=== PATIENT | female | born 1985 | race Caucasian/White ===

== ENCOUNTER → 2022-08-01 07:53 | Outpatient (BNVA) | payer BC, SELFPAY | PROVIDERS: Visit Provider Physician Assistant | DX: Z13.89 Encounter for screening for other disorder (principal) ==

== ENCOUNTER → 2022-08-14 08:02 | Outpatient (BNVA) | payer BC, SELFPAY | PROVIDERS: PCP Family Medicine; Visit Provider Surgery | DX: Z13.89 Encounter for screening for other disorder (principal) ==

== ENCOUNTER 2022-08-15 07:46 | Outpatient (REF) | payer BC, SELFPAY ==
--- NOTE | ~2022-08-15 | XR_ITS ---
EXAMINATION: XR CHEST CLINICAL INFORMATION: Obesity COMPARISON: None available. TECHNIQUE: 2 views of the chest were obtained. FINDINGS: No significant abnormality is noted involving the heart, lungs, mediastinum, bony thorax or soft tissues. XR/XR chest 2V IMPRESSION: Unremarkable examination.
--- NOTE | 2022-08-15 07:53 | ECG_ITS ---
Test Reason : e66.01 Blood Pressure : / mmHG Vent. Rate : 070 BPM Atrial Rate : 070 BPM P-R Int : 130 ms QRS Dur : 088 ms QT Int : 422 ms P-R-T Axes : 040 -01 035 degrees QTc Int : 455 ms Normal sinus rhythm Minimal voltage criteria for LVH, may be normal variant ( R in aVL ) Borderline ECG No previous ECGs available Referred By: João White Electronically Signed By:FORREST JUAREZ MD
[2022-08-15 08:00] LABS: MANUAL DIFF FLAG NO
[2022-08-15 08:05] LABS: Basophils Absolute Auto 0.1 X10*3/uL (0.0-0.2); Basophils Percent Auto 1.1 % (0-2); Eosinophils Absolute Auto 0.3 X10*3/uL (0.0-0.4); Eosinophils Percent Auto 3.2 % (0-4); Hematocrit 39.8 % (37.0-47.0); Hemoglobin 13.3 g/dl (12.0-16.0); Imm Gran Abs Auto 0.02 X10*3/uL (0.00-0.03); Imm Gran Pct Auto 0.2 % (0.0-0.4); Lymphocytes Absolute Auto 3.3 X10*3/uL (1.2-4.9); Lymphocytes Percent Auto 37.3 % (20-40); Mean Corpuscular HGB Conc 33.4 g/dl (31.0-35.0); Mean Corpuscular Hemoglobin 29.6 pg (27.0-33.0); Mean Corpuscular Volume 88.6 fL (80.0-98.0); Mean Platelet Volume 10.1 fL (9.4-12.3); Monocytes Absolute Auto 0.5 X10*3/uL (0.1-1.2); Monocytes Percent Auto 6.2 % (2-11); Neutrophils Absolute Auto 4.6 x10*3/uL (2.0-8.3); Platelet Count 375 X10*3/uL (160-400); Red Blood Count 4.49 X10*6/uL (4.20-5.50); Red Cell Distribution Width 12.8 % (11.0-16.0); White Blood Count 8.8 X10*3/uL (4.8-10.8)
[2022-08-15 08:18] LABS: Estimated Average Glucose 111 mg/dL; Hemoglobin A1c % 5.5 %
[2022-08-15 08:47] LABS: Alanine Aminotransferase 54 U/L (0-31); Albumin Level 4.1 g/dL (3.5-5.0); Alkaline Phosphatase 86 U/L (39-117); Anion Gap 10 (12-20); Aspartate Amino Transferase 32 U/L (5-31); Bilirubin Total 0.5 mg/dL (0.0-1.0); Blood Urea Nitrogen 12 mg/dL (9-16); C Reactive Protein 1.01 mg/dL (< or = 0.50); Calcium 9.4 mg/dL (8.4-10.2); Carbon Dioxide 29 mmol/L (22-29); Chloride 104 mmol/L (96-108); Cholesterol 225 mg/dL; Estimated Glomerular Filt Rate > 60; Glucose Random 103 mg/dL (60-115); HDL Cholesterol 33 mg/dL; Iron 111 mcg/dL (30-160); LDL Cholesterol Calculated 139 mg/dl; Percent Iron Saturation 29 % (15-50); Potassium 4.4 mmol/L (3.3-5.1); Sodium 139 mmol/L (135-145); Total Iron Binding Capacity 379 mcg/dL (228-428); Total Protein 7.1 g/dL (6.5-8.0); Triglycerides 269 mg/dL; Unsaturated Iron Binding 268 ug/dL
[2022-08-15 09:17] LABS: Ferritin 115 ng/mL (10-122); Folate 11.1 ng/mL (> or = 4.0); Insulin 13 uU/mL (2-29); TSH reflex Free T4 3.24 uIU/mL (0.32-4.0); Vitamin B12 540 pg/mL (200-900); Vitamin D 25-OH Total 23.3 ng/mL (>30)
[2022-08-16 13:48] LABS: Calcium (PTHI) 9.8 mg/dL (8.6-10.2); PTHI 49 pg/mL (16-77)
[2022-08-19 15:13] LABS: Zinc 79 mcg/dL (60-130)
[2022-08-20 13:34] LABS: Vitamin B1 <6 nmol/L (8-30)
[2022-08-23 00:04] LABS: Vitamin A 60 mcg/dL (38-98)
== END 2022-08-15 07:47 | disposition home or self-care (01) ==
LOC: HO.LAB 07:46
PROVIDERS: Visit Provider Surgery
DX: E66.01 Morbid (severe) obesity due to excess calories (principal); I10 Essential (primary) hypertension; K21.9 Gastro-esophageal reflux disease without esophagitis
CPT/HCPCS: 36415; 71046; 80053; 80061; 82306; 82607; 82728; 82746; 83036; 83525; 83540; 83970; 84425; 84443; 84590; 84630; 85025; 86140; 93005

== ENCOUNTER 2022-08-22 | Outpatient (REF) | payer BC, SELFPAY ==
[2022-08-25 11:26] LABS: H Pylori Breath Test Negative (Negative)
== END 2022-08-22 00:01 | disposition home or self-care (01) ==
LOC: HO.LNP
PROVIDERS: Visit Provider Surgery
DX: Z11.0 Encounter for screening for intestinal infectious diseases (principal)
CPT/HCPCS: 83013

== ENCOUNTER → 2022-08-22 09:00 | Outpatient (BNVA) | payer BC, SELFPAY | PROVIDERS: PCP Family Medicine; Visit Provider Counselor Mental Health | DX: Z13.89 Encounter for screening for other disorder (principal) ==

== ENCOUNTER → 2022-09-08 08:03 | Outpatient (BNVA) | payer BC, SELFPAY | PROVIDERS: PCP Family Medicine; Visit Provider Surgery ==

== ENCOUNTER → 2022-09-15 08:46 | Outpatient (BNVA) | payer BC, SELFPAY | PROVIDERS: PCP Family Medicine; Visit Provider Dietitian, Registered | DX: E66.01 Morbid (severe) obesity due to excess calories (principal); I10 Essential (primary) hypertension | CPT/HCPCS: 97802 ==

== ENCOUNTER → 2022-10-04 08:37 | Outpatient (BNVA) | payer BC, SELFPAY | PROVIDERS: PCP Family Medicine; Visit Provider Surgery | DX: E66.01 Morbid (severe) obesity due to excess calories (principal) ==

== ENCOUNTER 2022-10-16 07:46 | Outpatient (REF) | payer BC, SELFPAY ==
--- NOTE | ~2022-10-16 | FL_ITS ---
EXAMINATION: XR FLUOROSCOPY UPPER GI WITH AIR CLINICAL INFORMATION: Obesity COMPARISON: None available. TECHNIQUE: Upper GI was performed using thin and thick barium and effervescent granules. FINDINGS: Esophageal motility is normal. There is gastroesophageal reflux. No hernia is seen. The stomach and duodenum are normal-appearing. No fold thickening, mass, ulcer or stricture is seen. FLUOROSCOPY TIME: 0.3 minutes DOSE AREA PRODUCT: 4.5 jean per centimeter squared. Total dose 15 mgy. 21 saved fluoroscopic images. FL/FL upper GI w air IMPRESSION: Gastroesophageal reflux otherwise unremarkable exam.
--- NOTE | ~2022-10-16 | US_ITS ---
EXAMINATION: US COMPLETE ABDOMEN WITH LIVER ELASTOGRAPHY CLINICAL INFORMATION: Obesity COMPARISON: None available. TECHNIQUE: Real-time imaging of the abdominal viscera. Noninvasive ultrasound liver fibrosis assessment is performed using Micah ElastPQ point quantification shear wave elastography (2D-SWE) with a C5-2 MHz transducer. Multiple elastography samples are obtained. FINDINGS: PANCREAS: Normal. . ABDOMINAL AORTA: The proximal, middle, and distal aortic segments are normal in caliber. INFERIOR VENA CAVA: Visualized portions are normal. LIVER: Liver echotexture is increased. The liver is enlarged. The liver is normal in contour. No focal lesion or intrahepatic biliary duct dilatation. The right lobe measures 20 cm in length. The left lobe measures 11 cm in length. Portal flow is normal/hepatopedal Shear wave liver elastography median stiffness is 1.9 m/s (reference: normal median stiffness is 1.3 m/s or less). IQR/median stiffness to assess sampling precision is 0.09 (reference: good quality data set is IQR/median stiffness of 0.15 or less). GALLBLADDER: Normal. The gallbladder is physiologically distended without evidence of stones, sludge, polyps, wall thickening or pericholecystic fluid. COMMON BILE DUCT: Normal in caliber measuring 0.4 cm in diameter. RIGHT KIDNEY: Normal. No hydronephrosis. No renal calculi or focal parenchymal lesions. The kidney measures 13.7 cm in maximum dimension. LEFT KIDNEY: Normal. No hydronephrosis. No renal calculi or focal parenchymal lesions. The kidney measures 12.2 cm in maximum dimension. SPLEEN: Normal. The spleen measures 11 cm in maximum dimension. FREE FLUID: None. US/US abdomen comp w elastography IMPRESSION: 1. Impression: Enlarged echogenic liver probably representing fatty infiltration. 2. Liver elastography: Adequate liver sampling. Increased liver stiffness suggestive of compensated advanced chronic liver disease but need further test for confirmation. REFERENCE: Society of Radiologists in Ultrasound Liver Stiffness Thresholds (2020): LIVER STIFFNESS THRESHOLDS: *Liver Stiffness equal or less than 1.3 m/s: High probability of being normal. *Liver Stiffness less than 1.7 m/s: In the absence of other known clinical signs, rules out compensated advanced chronic liver disease. *Liver Stiffness 1.7-2.1 m/s: Suggestive of compensated advanced chronic liver disease but need further test for confirmation. *Liver Stiffness over 2.1 m/s: Rules in compensated advanced chronic liver disease. *Liver Stiffness over 2.4 m/s: Suggestive of clinically significant portal hypertension. QUALITY OF DATA SET: *IQR/Median value equal or less than 0.15 implies a quality data set. *IQR/Median value over 0.15 implies a poor quality data set. SIGNIFICANT CHANGE FROM PRIOR EXAM: Significant change if liver stiffness measurement is 10% or greater from prior exam. OTHER CONSIDERATIONS: The stage of liver fibrosis may be overestimated in the setting of acute hepatitis, liver inflammation, elevated liver function tests, hepatic vascular congestion, obstructive cholestasis, non-fasting state, and infiltrative diseases such as amyloidosis and lymphoma. In some patients with NAFLD, the liver stiffness thresholds for compensated advanced chronic liver disease may be lower. In causes other than viral hepatitis and NAFLD, liver stiffness thresholds are not well established.
== END 2022-10-16 07:47 | disposition home or self-care (01) ==
LOC: HO.US 07:46
PROVIDERS: PCP Family Medicine; Visit Provider Surgery
DX: E66.01 Morbid (severe) obesity due to excess calories (principal); K21.9 Gastro-esophageal reflux disease without esophagitis; I10 Essential (primary) hypertension
CPT/HCPCS: 74246; 76705; 76981

== ENCOUNTER → 2022-10-17 08:02 | Outpatient (BNVA) | payer BC, SELFPAY | PROVIDERS: PCP Family Medicine; Visit Provider Surgery ==

== ENCOUNTER 2022-10-18 08:08 | Outpatient (REF) | payer BC, SELFPAY | END 2022-10-18 08:09 | disposition home or self-care (01) | LOC: HO.LAB 08:08 | PROVIDERS: Visit Provider Surgery | DX: Z13.89 Encounter for screening for other disorder (principal) | CPT/HCPCS: 36415; 80053; 80061; 83036; 83525; 84443; 85025; 85610; 85730; 86140; 86850; 86900; 86901 ==

== ENCOUNTER → 2022-10-20 12:46 | Outpatient (BNVA) | payer BC, SELFPAY | PROVIDERS: PCP Family Medicine; Visit Provider Surgery ==

== ENCOUNTER 2022-10-25 08:10 | Inpatient (IN) | payer BC, SELFPAY ==
[2022-10-18 08:26] LABS: MANUAL DIFF FLAG NO
[2022-10-18 09:30] LABS: Basophils Absolute Auto 0.1 X10*3/uL (0.0-0.2); Basophils Percent Auto 1.3 % (0-2); Eosinophils Absolute Auto 0.2 X10*3/uL (0.0-0.4); Eosinophils Percent Auto 2.6 % (0-4); Hematocrit 38.8 % (37.0-47.0); Hemoglobin 12.9 g/dl (12.0-16.0); Imm Gran Abs Auto 0.01 X10*3/uL (0.00-0.03); Imm Gran Pct Auto 0.1 % (0.0-0.4); Lymphocytes Absolute Auto 3.1 X10*3/uL (1.2-4.9); Lymphocytes Percent Auto 42.4 % (20-40); Mean Corpuscular HGB Conc 33.2 g/dl (31.0-35.0); Mean Corpuscular Hemoglobin 29.6 pg (27.0-33.0); Mean Platelet Volume 10.4 fL (9.4-12.3); Monocytes Absolute Auto 0.4 X10*3/uL (0.1-1.2); Monocytes Percent Auto 5.8 % (2-11); Neutrophils Absolute Auto 3.4 x10*3/uL (2.0-8.3); Neutrophils Percent Auto 47.8 % (45-73); Platelet Count 366 X10*3/uL (160-400); Red Blood Count 4.36 X10*6/uL (4.20-5.50); Red Cell Distribution Width 12.5 % (11.0-16.0); White Blood Count 7.2 X10*3/uL (4.8-10.8)
[2022-10-18 09:40] LABS: Estimated Average Glucose 97 mg/dL
[2022-10-18 09:43] LABS: Prothrombin Time 11.4 SEC (10.0-13.1)
[2022-10-18 09:46] LABS: Partial Thromboplastin Time 39.9 SEC (26.0-36.4)
[2022-10-18 10:13] LABS: Alanine Aminotransferase 29 U/L (0-31); Albumin Level 4.1 g/dL (3.5-5.0); Alkaline Phosphatase 72 U/L (39-117); Anion Gap 11 (12-20); Aspartate Amino Transferase 22 U/L (5-31); Bilirubin Total 0.4 mg/dL (0.0-1.0); Blood Urea Nitrogen 13 mg/dL (9-16); C Reactive Protein 0.61 mg/dL (< or = 0.50); Calcium 9.1 mg/dL (8.4-10.2); Carbon Dioxide 26 mmol/L (22-29); Chloride 108 mmol/L (96-108); Cholesterol 200 mg/dL; Estimated Glomerular Filt Rate > 60; Glucose Random 96 mg/dL (60-115); HDL Cholesterol 29 mg/dL; LDL Cholesterol Calculated 121 mg/dl; Potassium 3.9 mmol/L (3.3-5.1); Sodium 141 mmol/L (135-145); Total Protein 7.5 g/dL (6.5-8.0); Triglycerides 252 mg/dL
[2022-10-18 10:31] LABS: Insulin 14 uU/mL (2-29); TSH reflex Free T4 2.55 uIU/mL (0.32-4.0)
[2022-10-19 09:06] VITALS: BMI 43.4
--- NOTE | 2022-10-21 14:55 | P.HPSUR_ITS ---
Pre-Procedural Eval Section A Date of Service: 10/21/22 The patient is an INPATIENT: Yes The History & Physical has been completed within 30 days and I have reviewed it.: Yes Section B Chief Complaint: Morbid (severe) obesity due to excess calories Relevant Family History (Specify if Yes): No Relevant Social History: None Present Medications: None Medical History: No relevant PMH History of Previous Operations: No relevant previous surgery Allergies: Allergies Allergy/AdvReac Type Severity Reaction Status Date / Time No Known Allergies Allergy Verified 10/17/22 09:17 Review of Systems Sugical H&P ROS: Negative: Constitution, Cardiovascular, Respiratory, Neurological, Psychiatric, Hem-Onc, Allergic/Immunologic, Gastrointestinal, Genitourinary, Musculoskeletal, Integumentary, Endocrine and Eyes/Ears/No se/Throat Exam Surgical H&P Exam: Normal: HEENT, Normal: Heart, Normal: Lungs, Normal: Extremities, Normal: Abdomen, Normal: Skin and Normal: Neurological Plan Diagnosis/Plan: Unchanged I have reviewed the history and physical and performed a pertinent physical examination on my patient. No changes have occurred unless specified. Time Spent With Patient Time: Total time managing care of this patient today ____ minutes.
--- NOTE | 2022-10-24 09:53 | HO.ANESPROP2 ---
Documented by User: Bernie Cheek NP 10/24/22 09:54 HPI - Anesthesia Eval Consult details Narrative: 37yo F for Gastrectomy Sleeve EGD, poss diaphragmatic hernia, poss ventral,poss open PMFSH Active Problems Active Problems: All Active Problems (Updated 08/22/22 @ 18:22 by João White MD) Binge-eating disorder, in partial remission, mild (Acute) Adjustment disorder, unspecified (Acute) Vitamin D deficiency (Acute) Vitamin B1 deficiency (Acute) DJD (degenerative joint disease) (Acute) GERD (gastroesophageal reflux disease) (Acute) Hypertension (Acute) Morbid obesity (Acute) Past Medical History Medical History (Updated 10/25/22 @ 12:28 by João White MD) DJD (degenerative joint disease) GERD (gastroesophageal reflux disease) Hypertension Morbid obesity Family History Family History (Updated 08/01/22 @ 08:34 by Alicia Luciano CMA) Father HTN (hypertension) Diabetes Paternal Grandfather Skin cancer Paternal Grandmother Skin cancer Surgical History Surgical History (Updated 10/25/22 @ 12:18 by Lulú Velazco PA-C) History of left knee surgery Social History Social History (Updated 08/01/22 @ 08:35 by Alicia Luciano CMA) Household Members: None Housing: House Are you a primary resident care aid to a significant other at home: No Do you presently have visiting nurse or other home services: No Alcohol intake: current Alcohol intake frequency: holidays/special occasions only Alcohol type: hard liquor Patient Tobacco Use Status: Never used Tobacco Use of substances other than those prescribed or required for medical reasons: No Substance Use Type Other:: occasional edibles-has not used since in bariatric program Substance Use Frequency: Occasionally Currently Displaying Signs/Symptoms of Drug Intoxication Withdrawal: No Have you been hit, kicked, punched, or otherwise hurt by someone within the past year? If so, by whom?: No Do you feel safe in your current relationship?: Yes Is there a partner from a previous relationship who is making you feel unsafe now?: No Are you made to feel afraid or neglected: No Are you DNR?: No Advance Directives Information Provided: Yes (brochure mailed) Advance Directives on File: No Do you have thoughts of harming others: None Do you have a plan to hurt others: No Plan Recently lost weight without trying: No Eating poorly because of decreased appetite: No Nutrition Risks: No Nutritional Risk Patient : No FDLMP: 10/16/22 : No Poor oral hygiene: No Current occupational status: employed Current occupation: title i assistant food truck also transport Meds Allergies Allergy/AdvReac Type Severity Reaction Status Date / Time No Known Allergies Allergy Verified 10/25/22 09:06 Home Medications Medication Instructions Recorded Confirmed Last Taken Type amlodipine 10 mg tablet 5 mg PO BEDTIME 08/01/22 10/19/22 10/24/22 History Exam Exam Date and Time: October 24, 2022 0953 Height,Weight and Vital Signs: Height 5 ft 5 in Weight 118.388 kg Pertinent Lab Results Pertinent Lab Results: Laboratory Tests 10/18/22 10/18/22 10/18/22 08:22 08:23 08:23 WBC 7.2 RBC 4.36 Hgb 12.9 Hct 38.8 MCV 89.0 MCH 29.6 MCHC 33.2 RDW 12.5 Plt Count 366 MPV 10.4 Immature Gran % (Auto) 0.1 Neut % (Auto) 47.8 Lymph % (Auto) 42.4 H Montgomery % (Auto) 5.8 Eos % (Auto) 2.6 Baso % (Auto) 1.3 Lymph # (Auto) 3.1 Montgomery # (Auto) 0.4 Eos # (Auto) 0.2 Baso # (Auto) 0.1 Abs Immat Gran (auto) 0.01 Absolute Neuts (auto) 3.4 Absolute Nucleated RBC 0.000 Nucleated RBC % (auto) 0.0 PT 11.4 INR 1.0 APTT 39.9 H Sodium Potassium Chloride Carbon Dioxide Anion Gap BUN Creatinine Estimated GFR Random Glucose Estimat Average Glucose Hemoglobin A1c % Insulin Level Calcium Total Bilirubin AST ALT Alkaline Phosphatase C-Reactive Protein Total Protein Albumin Triglycerides Cholesterol LDL Cholesterol, Calc HDL Cholesterol TSH Blood Type O Positive Antibody Screen NEGATIVE 10/18/22 10/18/22 08: 08:23 WBC RBC Hgb Hct MCV MCH MCHC RDW Plt Count MPV Immature Gran % (Auto) Neut % (Auto) Lymph % (Auto) Montgomery % (Auto) Eos % (Auto) Baso % (Auto) Lymph # (Auto) Montgomery # (Auto) Eos # (Auto) Baso # (Auto) Abs Immat Gran (auto) Absolute Neuts (auto) Absolute Nucleated RBC Nucleated RBC % (auto) PT INR APTT Sodium 141 Potassium 3.9 Chloride 108 Carbon Dioxide 26 Anion Gap 11 L BUN 13 Creatinine 0.72 Estimated GFR > 60 Random Glucose 96 Estimat Average Glucose 97 Hemoglobin A1c % 5.0 Insulin Level 14 Calcium 9.1 Total Bilirubin 0.4 AST 22 ALT 29 Alkaline Phosphatase 72 C-Reactive Protein 0.61 H Total Protein 7.5 Albumin 4.1 Triglycerides 252 Cholesterol 200 LDL Cholesterol, Calc 121 HDL Cholesterol 29 TSH 2.55 Blood Type Antibody Screen Narrative Narrative: EKG 08/2022 Vent. Rate : 070 BPM ? ? Atrial Rate : 070 BPM ?? P-R Int : 130 ms? QRS Dur : 088 ms ? ? QT Int : 422 ms ? ? ? P-R-T Axes : 040 -01 035 degrees ?? QTc Int : 455 ms ? Normal sinus rhythm Minimal voltage criteria for LVH, may be normal variant ( R in aVL ) Borderline ECG No previous ECGs available Assessment and Plan Assessment Anesthesia Assessment: Chart Reviewed Documented by User: Bull Paulino MD 10/25/22 17:11 [facility] Past Medical History Medical History (Updated 10/25/22 @ 12:28 by João White MD) DJD (degenerative joint disease) GERD (gastroesophageal reflux disease) Hypertension Morbid obesity Functional capacity: independent ambulation Family History Family History (Updated 08/01/22 @ 08:34 by Alicia Luciano CMA) Father HTN (hypertension) Diabetes Paternal Grandfather Skin cancer Paternal Grandmother Skin cancer Family history of problems with anesthesia: No Surgical History Surgical History (Updated 10/25/22 @ 12:18 by Lulú Velazco PA-C) History of left knee surgery History of Problems with Anesthesia: No Social History Social History (Updated 08/01/22 @ 08:35 by Alicia Luciano CMA) Household Members: None Housing: House Are you a primary resident care aid to a significant other at home: No Do you presently have visiting nurse or other home services: No Alcohol intake: current Alcohol intake frequency: holidays/special occasions only Alcohol type: hard liquor Patient Tobacco Use Status: Never used Tobacco Use of substances other than those prescribed or required for medical reasons: No Substance Use Type Other:: occasional edibles-has not used since in bariatric program Substance Use Frequency: Occasionally Currently Displaying Signs/Symptoms of Drug Intoxication Withdrawal: No Have you been hit, kicked, punched, or otherwise hurt by someone within the past year? If so, by whom?: No Do you feel safe in your current relationship?: Yes Is there a partner from a previous relationship who is making you feel unsafe now?: No Are you made to feel afraid or neglected: No Are you DNR?: No Advance Directives Information Provided: Yes (brochure mailed) Advance Directives on File: No Do you have thoughts of harming others: None Do you have a plan to hurt others: No Plan Recently lost weight without trying: No Eating poorly because of decreased appetite: No Nutrition Risks: No Nutritional Risk Patient : No FDLMP: 10/16/22 : No Poor oral hygiene: No Current occupational status: employed Current occupation: title i assistant food truck also transport Meds Allergies Allergy/AdvReac Type Severity Reaction Status Date / Time No Known Allergies Allergy Verified 10/25/22 09:06 Home Medications Medication Instructions Recorded Confirmed Last Taken Type amlodipine 10 mg tablet 5 mg PO BEDTIME 08/01/22 10/19/22 10/24/22 History Exam Airway Mallampati Class: III Neck ROM: Full Loose/Missing/Broken Teeth: Yes Assessment and Plan Assessment Anesthesia Assessment: Anesthesia Plan Discussed Final Anesthetic Review Family History of Problems with Anesthesia: No History of Problems with Anesthesia: No NPO: Yes ASA Class: III Final Preanesthetic Review: Meds/Allgs Chart Reviewed, Consent Obtained/Reviewed and Anes Risks/Benef Reviewed Patient Risk: Intermediate Procedure Risk: Intermediate Anesthetic Plan Anesthetic Plan: GA and Agree w/ Assess. and Plan Disposition: Standard PACU
[2022-10-24 12:51] LABS: COVID-19 Test Negative (Negative); IDNOW Serial# BCCEAD1C
[2022-10-25] VITALS (11 sets, daily range): BP systolic 108–139; BP diastolic 55–81; PULSE 56–87; RESP 14–20; TEMP 36–36.4; O2SAT 94–100
[2022-10-25 08:21] LABS: UPreg QC Valid YES
[2022-10-25 08:22] LABS: Urine Pregnancy NEGATIVE (NEGATIVE)
[2022-10-25] MEDS: Lactated Ringers 1,000 ML 999 ML IV (09:07)
[2022-10-25] MEDS: Aprepitant 32 MG/4.4 ML VIAL IVPUSH (09:08)
--- NOTE | 2022-10-25 09:38 | PM.DS ---
DS: Providers Provider Date of Service: 10/26/22 Date of admission: 10/25/22 08:10 Primary care physician: Abbey Molina MD DS: Summary Hospital Course Hospital Course: ADMITTING DIAGNOSIS: morbid obesity, HTN, GERD DISCHARGE DIAGNOSIS: same, s/p laparoscopic sleeve gastrectomy PAST SURGICAL HISTORY: none PROCEDURE: upper endoscopy, laparoscopic sleeve gastrectomy DISCHARGE SUMMARY: History of Present Illness: The patient is a 37 year-old woman with a BMI of 47.7 kg/m2 and associated co-morbidities as described above. The patient had extensive work-up, lost 24.6 lbs preoperatively and was electively scheduled for laparoscopic, possible open sleeve gastrectomy and gastropexy. Risks and complications of the surgery were discussed with the patient in advance, particularly the possibility of , pulmonary embolism, anastomotic leak, bleeding, bowel injury, GERD, cardiac, renal or pulmonary complications. The patient understood all the risks and was in agreement with the surgical plan. Hospital Course: The patient underwent an uneventful laparoscopic sleeve gastrectomy with gastropexy on the day of admission. Postoperatively, the patient was transferred to the surgical floor. The patient received IV Acetaminophen and IV dilaudid for pain control. Patient was started on bariatric phase 1 diet POD #0. On postoperative day one, the patient was feeling well without nausea, vomiting, fevers, or tachycardia. The patient had some mild incisional pain and the abdomen was soft. On the morning of postoperative day one, the patient was continued on 1 ounce of water or ice every half hour. During the day, the patient did fairly well, having some incisional pain, but able to ambulate adequately and to tolerate liquids well. Since the patient is doing well, we decided that the patient was ready to be discharged. The patient was given instructions to follow-up with me next week and to call my office for any fever over 101, persistent abdominal pain, nausea, vomiting, GERD, symptoms of DVT such as calf tenderness, or leg swelling, or pulmonary embolism such as chest pain or shortness of breath. The patient was also instructed to drink 40-60 ounces of liquids per day using the 1-ounce cups. The patient had been given prescriptions for Tylenol for pain, Zofran prn for nausea, and pantoprazole and carafate previously. The patient was encouraged to ambulate and use the incentive spirometer. The patient was allowed to shower, but no baths, and encouraged to stay active at home. All of these instructions were given to the patient personally. All questions were answered and the patient understood all instructions, the instructions were also given to the patient in print. Time Spent with Patient Time attestation: Total time managing care of this patient today ____ minutes. Discharge coordination time: Less than 30 minutes Quality: Safe Use of Opioids Does Pt have an Active Cancer Diagnosis on the Problem List?: No Quality: Stroke Does the patient have a stroke diagnosis?: No Physical Exam Vital Signs: Vital Signs: Last Vital Signs Temp 97.2 F 10/25/22 08:27 Pulse 77 10/25/22 08:27 Resp 18 10/25/22 08:27 BP 135/77 10/25/22 08:27 Pulse Ox 98 10/25/22 08:27 O2 Del Method Room Air 10/25/22 08:27 BMI result Body Mass Index 43.4 DS: Data Data Completed and Pending Labs on day of discharge: Laboratory Results - last 24 hr 10/24/22 10/25/22 12:10 08:10 Urine Test NEGATIVE COVID-19 ([facility]) Negative COVID-19 Clin Com See Note Discharge Plan Discharge Anticipated Discharge Date/Time: 10/26/22 10:37 Patient Disposition: Home, Self-Care Discharge Diagnosis: s/p sleeve gastrectomy Referrals: Abbey Hernandez MD [Primary Care Provider] - 1 Week Discharge Medications: Continued pantoprazole 40 mg tablet,delayed release (DR/EC) 40 mg PO DAILY Qty: 30 2RF sucralfate 100 mg/mL suspension 10 ml PO BID Qty: 400 2RF ondansetron 4 mg tablet,disintegrating 4 mg PO Q12H Qty: 20 0RF Rx Instructions: Only take one every 12 hours as needed if you have nausea Held amlodipine 10 mg tablet 5 mg PO BEDTIME Hold Instructions: Resume on 10/27/22. Check your blood pressure every evening and send it to Dr. White. Do not take the medication before you hear from Dr. White. Do not take the medication if your blood pressure is below 120/70 mmHg. Discontinued cholecalciferol (vitamin D3) 125 mcg (5,000 unit) capsule 125 mcg PO DAILY 90 Days Qty: 90 1RF thiamine HCl (vitamin B1) 100 mg tablet 100 mg PO DAILY Qty: 90 0RF Discharge Orders: Discharge Order (Routine); Ordered 10/26/22 Ordered By: João White Activity on Discharge: No heavy lifting Stand Alone Forms: Patient Portal Discharge page Care Plan Goals: weight loss Health Concerns: morbid obesity Plan of Treatment: No tub baths, sex or returning to work until discussed at first post op appointment. No exercise, alcohol, tobacco or illegal drug use. Continue to use incentive spirometer hourly while awake. Walk in home for 5- 10 minutes every 2 hours during the first week. Continue phase 1 diet today and start phase 2 diet tomorrow morning. Follow all instructions in the bariatric handbook and call with any questions. 1. Please call your doctor or come back to the emergency room should any new symptoms arise. 2. You will receive a courtesy call from [facility] 24-48 hours after discharge. 3. Activity: abstain from alcohol, practice limited stair climbing, no bending, no driving, no exercise, no illicit substances, no lifting, no sex, no tub bath, no work. 4. Diet: continue as discussed with bariatric team.. 5. Dressing Change/Wound Care: Do not change or remove surgical dressings unless they are wet or soiled. 6. Call your doctor if: - Your temperature exceeds 101.5 F - You experience excessive pain or swelling - You have an unexpected reaction to medication - You have excessive bleeding - You experience continued vomiting/nausea - Your incision begins to separate - Your incision shows signs of infection such as increased redness, swelling, excessive pain, heat, or drainage (light blood or clear fluid is normal) 7. General instructions: No lifting greater than 5 lbs for the next 4 weeks[address] within 24 hours of taking narcotic pain medications. If you do not move your bowels in the next 2 days, please take milk of magnesia over the counter. Please follow the post op diet and do not advance your diet until you are seen in the office in about 2 weeks. Please walk around your home every hour or two to prevent blood clots from forming in your legs. You do not need to wake from sleeping to walk. Please sleep in a bed or couch to prevent kinking at the hips and knees. Please take your incentive spirometer (your lung veterinary practitioner) home with you and use it for the next few days to prevent pneumonias. You may shower, no hot tubs, baths or swimming pools. Please call the office with any questions or concerns such as increasing abdominal pain, fever, chills, shortness of breath, chest pain, leg pain or swelling, or redness or drainage from your incisions. Do not hesitate to contact the office with any questions at . The patient's medical history has been reviewed and they are considered low risk for post op DVT and therefore DVT prophylaxis is not considered necessary. Travel after surgery was reviewed. The patient has not disclosed any travel plans during the first 30 days after surgery and they have been advised that within the first 30 days after surgery any bus, plane, train or car travel over 2 hours in duration is contraindicated due to the possibility of developing blood clots from immobility. Any travel, needs to include periods of ambulation of 10 minutes in duration every 2 hours. The patient was instructed to discuss any plans for travel during this period with their bariatric surgeon. Assessment: stable, post op sleeve gastrectomy
--- NOTE | 2022-10-25 09:46 | P.BOP_ITS ---
Brief Operative Note Date of Service: 10/25/22 Pre-op diagnosis: Morbid obesity with comorbidities (see below) Post-op diagnosis: same Procedure: INITIAL PATIENT BMI ON PRESENTATION AT OUR OFFICE: 47.8 kg/m2 LAST BMI BEFORE SURGERY: 43.2 kg/m2 COMORBIDITIES: GERD, hypertension, DJD, liver steatosis, hepatomegaly, liver fibrosis ?The patient presented to the Weight Management Program with significant obesity that was negatively impacting the patient's comorbidities as listed above.? The program is a phased program with a special focus on preoperative medical weight management to promote substantial weight loss and prepare the patients for the second phase of the program: bariatric surgery. The patient participated in an intensive weekly lifestyle ?intervention and exercise program during which the patient ?has lost between the initial office visit and the last preoperative visit 28.2 lbs, or 9.81% of initial actual body weight. It was deemed appropriate for the patient to now have bariatric surgery. In light of the current Covid-19 pandemic and the well documented strong association of obesity and increased risk of worse outcomes if infected with Covid-19 (REFERENCES: https://pubmed.ncbi.nlm.nih.gov/65673145/ ,? https://pubmed.ncbi.nlm.nih.gov/05269360/ ), any delay in undergoing bariatric surgery may lead to the patient's worsening health condition and increased?risk of more severe Covid-19 disease if infected. In addition a recent?study from [facility] published in [facility] [employer] on 05/02/2021 ([email or web address]) found that, among patients with obesity, substantial weight loss achieved with surgery was associated with improved outcomes of COVID-19 infection. The findings suggest that obesity can be a modifiable risk factor for the severity of COVID-19 infection. In addition, the patient met the BMI-criteria for bariatric surgery based on the BMI on initial presentation. The patient should not be penalized for achieving such weight loss because ?it is not sustainable long-term without surgical intervention and it was achieved in preparation for bariatric surgery ?under my direction and based on my published research ([email or web address]).[email or web address] and? https://www.soard.org/article/Z6011-3877(97)05336-X/pdf ) ?that a 10% preope rative weight loss improves long-term weight loss after surgery and reduces perioperative complications.? Insurance carriers such as [facility] have endorsed my recommendations ?and have included in their policies criteria to include a 10% preoperative weight loss requirement. PROCEDURE: Esophago-gastroscopy, laparoscopic lysis of adhesions, laparoscopic sleeve gastrectomy and laparoscopic gastropexy INDICATIONS: This is a 37 year-old female who was electively scheduled for laparoscopic, possibly open sleeve gastrectomy. The risks and complications of the procedure were discussed with the patient in advance, particularly the possibility of ; pulmonary embolism; staple line leak; bleeding; GERD; cardiac, pulmonary, or renal complications; as well as long-term problems such as insufficient weight loss, vitamin deficiency, strictures, or ulcers. The patient understood all the risks, and was in agreement to proceed with surgery. DESCRIPTION OF PROCEDURE: After informed consent was obtained from the patient, the patient was given preoperative antibiotics, and was transferred to the operating room. After successful induction of general anesthesia, pneumatic compression devices were placed on both lower extremities. An upper endoscopy was performed next. The oropharynx and esophagus appeared to be within normal limits. There was no diaphragmatic hernia present consistent with the findings of the preoperative upper GI. The stomach was entered. Then after all fluid and air were suctioned and the stomach was fully decompressed, the scope was withdrawn and secured in the mid esophagus. The patient was then prepped and draped in the usual sterile manner, and abdominal access was established at the right upper quadrant with the Mireya technique. A 12 mm blunt port was inserted, and the abdomen was insufflated with CO2 to a pressure of 15 mmHg. Under direct visualization, additional ports were placed, specifically two 5 mm Versi-step ports to the left upper quadrant, and a 5 mm Versi-Step port to the right upper quadrant. 1% lidocaine plain was used to infiltrate all port sites as well as all fascia defects. Following that, the patient was placed in a steep reverse Trendelenburg position. An additional 5 mm port was placed to the right flank for the Mediflex retractor that was used to retract the left lobe of the liver. The gastro-esophageal fat pad was opened with the ultrasonic device (Thunderbeat, Olympus) and the anterior esophagus and hiatus were exposed. The angle of His was opened with the ultrasonic device the fundus of the stomach from any diaphragmatic and splenic attachments. I then opened the gastrocolic ligament between the transverse colon and the greater curvature of the stomach with the ultrasonic device to enter the lesser sac and facilitate the ligation of the short gastric vessels. I started at a mid-point along the greater curvature and using the Thunderbeat, all short gastric vessels were divided all the way to the angle of His until the left eryn was completely dissected at its entirety. I then divided the gastro-colic ligament distally to a distance of about 3-4 cm proximal to the pylorus. There were extensive congenital adhesions between the pancreas and posterior gastric wall. Those were lysed completely with the ultrasonic device. Adhesiolysis took approximately 45 min to complete. The stomach was then divided transversely with three Endo FLY-45 purple and three FLY-60 articulating purple loads using the FOXFRAME.COMIA stapler and loads. Every effort was made that the gastric sleeve had a tubular shape and an even caliber throughout. Once the sleeve resection was completed, the staple line of the gastric sleeve was reinforced with Hemoclips. The resected stomach was retrieved without difficulty from the Mireya port. A gastropexy was then performed in order to prevent postoperative GERD and partial gastric volvulus. Several interrupted 2.0 Surgidac sutures were placed between the sleeve's staple line and the previously divided greater omentum and gastro-colic ligament using the Endo-Stitch device. ?An upper endoscopy was performed. There was no narrowing at the GE junction. The scope was easily advanced all the way to the pylorus which was clearly visualized. There was no narrowing anywhere and the sleeve's caliber was even throughout. The sleeve's staple line was inspected and there was no evidence of ischemia, bleeding or dehiscence. At that point the gastroscope was withdrawn from the patient?s mouth while we were decompressing the bowel and the stomach from any remaining air. I looked into the lesser sac to see how the sleeve was situating and it was situating well. There was no bleeding from the staple line, spleen, or short gastric vessels. The Mediflex retractor was removed, and the undersurface of the liver was inspected and there was no bleeding. The patient was placed in supine position. I closed the fascial defect of the 12 mm port site with a figure of eight #1 Polysorb suture. Then 30cc Ropivacaine plain with 10 mg of Dexamethasone were used to infiltrate the fascial closure as well as all skin incisions. At this point, the abdomen was deflated, all ports were removed under direct vision, and no bleeding was noted from any of the port sites. The skin incisions were irrigated with saline and were closed with 4-0 absorbable monofilament sutures. Steri-Strips and OpSites were used to cover all incisions. The patient was extubated and was transferred in stable condition to the recovery room for further care. I was present and performed all farrell parts of the procedure. Ms. Velazco was the first aid instructor. There were no residents to assist with this case. Randy White MD, PhD, FACS Surgeon: João White MD Anesthesia: GETA, local and other (TAP block) Was an Special Effects Artist used for this Procedure?: No Special Effects Artist: Lulú Velazco Estimated blood loss (mL): 10 IV fluids (mL): 2,000 Urine output (mL): 0 (No Sifuentes to record output) Pathology: other (Stomach) Condition: stable Disposition: PACU
--- NOTE | 2022-10-25 09:49 | PM.PNGS ---
Subjective Subjective Date of Service: 10/26/22 Interval history: Feels well. Mild incisional pain. She is tolerating phase 1 bariatric diet Physical Exam Vital Signs: Vital Signs: Last Vital Signs Temp 97.2 F 10/25/22 08:27 Pulse 77 10/25/22 08:27 Resp 18 10/25/22 08:27 BP 135/77 10/25/22 08:27 Pulse Ox 98 10/25/22 08:27 O2 Del Method Room Air 10/25/22 08:27 BMI result Body Mass Index 43.4 GI: Inspection: Yes normal to inspection, Yes incision (clean, dry and intact) and Yes obesity Palpation (GI): Soft to palpation Extrem: Right lower extremity: normal to inspection (no calf tenderness) Left lower extremity: normal to inspection (no calf tenderness) Objective Data Active Medications Lactated Ringer's (Lr) 1,000 mls @ 100 mls/hr IVCONT .Q10H HANK Lactated Ringer's (Lr) 1,000 mls @ 999 mls/hr IV .Q1H1M HANK Stop: 10/25/22 10:15 Last Admin: 10/25/22 09:07 Dose: 999 mls/hr Documented By: NEHA Labs 10/18/22 08:23 10/18/22 08:23 Labs: Laboratory Results - last 24 hr 10/24/22 10/25/22 12:10 08:10 Urine Test NEGATIVE COVID-19 ([facility]) Negative COVID-19 Clin Com See Note Procedures Date of Service Date of Service: 10/26/22 Progress Note: A&P Assessment and plan (1) Morbid obesity: Status: Acute Assessment and Plan: s/p laparoscopic sleeve gastrectomy, lysis of adhesions and gastropexy Doing well Will check am labs and if OK the patient will be discharged home (2) Hypertension: Status: Acute (3) GERD (gastroesophageal reflux disease): Status: Acute (4) DJD (degenerative joint disease): Status: Acute (5) Steatosis, liver: Status: Acute (6) Liver fibrosis: Status: Acute (7) S/P laparoscopic sleeve gastrectomy: Status: Acute (8) Congenital intra-abdominal adhesions: Status: Acute Time Spent With Patient Time: Total time managing care of this patient today ____ minutes. Quality Stroke Does the patient have a stroke diagnosis?: No VTE Prior VTE?: No VTE Risk Level:: Surgical - moderate VTE Device Contraindication: Treatment Not Indicated VTE Drug Contraindication: Treatment Not Indicated
[2022-10-25 12:53] LABS: Hematocrit 35.4 % (37.0-47.0); Hemoglobin 11.8 g/dl (12.0-16.0)
[2022-10-25] MEDS: Lactated Ringers 1,000 ML 100 ML IVCONT ×2 (13:23→23:27)
[2022-10-25] MEDS: Famotidine/PF 20 MG/2 ML VIAL IVPUSH ×2 (13:23→20:31)
[2022-10-25 14:17] LABS: Anion Gap 13 (12-20); Blood Urea Nitrogen 16 mg/dL (9-16); Carbon Dioxide 24 mmol/L (22-29); Chloride 106 mmol/L (96-108); Creatinine Clr Calc Pharmacy 117.1; Estimated Glomerular Filt Rate > 60; Glucose Random 156 mg/dL (60-115); Potassium 4.2 mmol/L (3.3-5.1); Sodium 139 mmol/L (135-145)
[2022-10-25] MEDS: ondansetron HCL 4 MG/2 ML VIAL IVPUSH ×2 (16:06→23:30)
[2022-10-25] MEDS: ceFAZolin Sodium/Dextrose,Iso 2 GM/50 ML PIGGYBACK IV (16:10)
[2022-10-25] MEDS: Acetaminophen 1,000 MG/100 ML PIGGYBACK 400 MG IV (18:36)
[2022-10-25] MEDS: Metoclopramide HCl 10 MG/2 ML VIAL IVPUSH (18:36)
[2022-10-25] MEDS: amLODIPine Besylate 5 MG TABLET PO (20:31)
[2022-10-26] MEDS: Acetaminophen 1,000 MG/100 ML PIGGYBACK 400 MG IV ×2 (00:28→06:19)
[2022-10-26 03:25] VITALS: BP 161/78; PULSE 83; RESP 16; TEMP 36.3; O2SAT 94
[2022-10-26 05:18] VITALS: BP 145/80
[2022-10-26 05:37] LABS: MANUAL DIFF FLAG NO
[2022-10-26 05:41] LABS: Basophils Percent Auto 0.1 % (0-2); Hematocrit 37.2 % (37.0-47.0); Hemoglobin 12.5 g/dl (12.0-16.0); Imm Gran Abs Auto 0.05 X10*3/uL (0.00-0.03); Imm Gran Pct Auto 0.4 % (0.0-0.4); Lymphocytes Absolute Auto 1.6 X10*3/uL (1.2-4.9); Lymphocytes Percent Auto 12.7 % (20-40); Mean Corpuscular HGB Conc 33.6 g/dl (31.0-35.0); Mean Corpuscular Hemoglobin 29.8 pg (27.0-33.0); Mean Corpuscular Volume 88.8 fL (80.0-98.0); Mean Platelet Volume 10.5 fL (9.4-12.3); Monocytes Absolute Auto 0.4 X10*3/uL (0.1-1.2); Monocytes Percent Auto 3.6 % (2-11); Neutrophils Absolute Auto 10.2 x10*3/uL (2.0-8.3); Neutrophils Percent Auto 83.2 % (45-73); Platelet Count 345 X10*3/uL (160-400); Red Blood Count 4.19 X10*6/uL (4.20-5.50); Red Cell Distribution Width 12.3 % (11.0-16.0); White Blood Count 12.2 X10*3/uL (4.8-10.8)
[2022-10-26 05:57] LABS: Anion Gap 15 (12-20); Blood Urea Nitrogen 7 mg/dL (9-16); Calcium 9.3 mg/dL (8.4-10.2); Carbon Dioxide 23 mmol/L (22-29); Chloride 105 mmol/L (96-108); Estimated Glomerular Filt Rate > 60; Glucose Random 108 mg/dL (60-115); Potassium 4.7 mmol/L (3.3-5.1); Sodium 138 mmol/L (135-145)
[2022-10-26] MEDS: Metoclopramide HCl 10 MG/2 ML VIAL IVPUSH (06:23)
--- NOTE | 2022-10-26 07:11 | PHA.MEDREC ---
Pharmacy Consult ? Medication Reconciliation Pharmacy has reviewed the medication reconciliation completed by nursing. Tiffany Baldwin, AspenD
[2022-10-26] MEDS: Famotidine/PF 20 MG/2 ML VIAL IVPUSH (07:25)
[2022-10-26 07:48] VITALS: BP 144/82; PULSE 80; RESP 16; TEMP 36.7; O2SAT 97
--- NOTE | 2022-10-26 11:09 | MHC.CM.PN ---
PT DISCHARGED HOME WTIH NO SERVICES PRIOR TO BEING SEEN BY CM PER EMR, PT INDEPENDENT WITH CARE NO HCP ON FILE PCP: PAYTON Ruiz PT ARRANGED TRANSPORT
--- NOTE | 2022-10-26 13:54 | HO.POSTANES ---
Post Anesthesia Evaluation Post Anesthesia Evaluation Date of Service: 10/26/22 Vital Signs: Vital Signs Temp Pulse Resp BP Pulse Ox O2 Del Method 10/26/22 07:48 98.0 F 80 16 144/82 H 97 Room Air 10/26/22 05:18 145/80 H 10/26/22 03:25 97.4 F 83 16 161/78 H 94 Room Air Anesthesia: General Endotracheal-GETA Mental Status: Awake Pain Control: Satisfactory Nausea/Vomiting: None Hydration: Adequate Anesthesia-Related Issues: No Anes. Related Issues
== END 2022-10-26 11:48 | disposition home or self-care (01) | DRG 403 ==
LOC: HO.SSSA 12:19 → HO.S3 12:44
PROVIDERS: Nurse Practitioner; Physician Assistant; Physician Assistant Surgical; Admitting Provider Surgery; PCP Family Medicine; Visit Provider Surgery
PROC: 0DB64Z3 Excision of Stomach, Percutaneous Endoscopic Approach, Vertical (ICD-10-PCS; CPT 43845; principal; 2022-10-25 10:10)
DX: E66.01 Morbid (severe) obesity due to excess calories (principal); K74.00 Hepatic fibrosis, unspecified; Q43.3 Congenital malformations of intestinal fixation; I10 Essential (primary) hypertension; K76.0 Fatty (change of) liver, not elsewhere classified; M19.90 Unspecified osteoarthritis, unspecified site; K21.9 Gastro-esophageal reflux disease without esophagitis; Z68.41 Body mass index [BMI] 40.0-44.9, adult; Z20.822 Contact with and (suspected) exposure to COVID-19; Z79.899 Other long term (current) drug therapy
CPT/HCPCS: 36415; 80048; 80053; 80061; 81025; 83036; 83525; 84443; 85014; 85018; 85025; 85610; 85730; 86140; 86850; 86900; 86901; 87635; 88304; 88305; 88307; 88342; A4649; C9145; J0131; J0690; J1100; J1170; J2250; J2405; J2765; J2795; J3010

== ENCOUNTER → 2022-10-31 09:52 | Outpatient (BNVA) | payer BC, SELFPAY | PROVIDERS: PCP Family Medicine; Visit Provider Physician Assistant Surgical ==

== ENCOUNTER 2022-11-21 16:30 | Outpatient (AMB) | payer BC, SELFPAY ==
--- NOTE | 2022-11-21 15:52 | A.OFFVIS_ITS ---
Intake VS Expanded 11/21/22 15:54 Height 5 ft 5 in Weight 238 lb BMI 39.6 Intake Visit Reasons: (tv) PO LSG 10/25/22 Product Grader Required: No Allergies No Known Allergies Allergy (Verified 10/31/22 10:27) Medication List - Last Reconciled 11/21/22 by NEEMA Banegas pantoprazole 40 mg PO DAILY sucralfate 10 mL PO BID HPI HPI Comments History of Present Illness Details This?a?37?yo female who is s/p LSG without hiatal hernia repair on?10/25/22. Presents for 1 month post op visit. Weight today is 238 pounds, with a BMI of 39.6. There has been a 49.4 pound weight loss,(initial weight 287.4 pounds) since starting the program on 08/14/22 reflecting a 17.1% total body weight loss and a weight loss of 22.4 pounds since surgery (operative weight 260.4 pounds) reflecting a 8.6 % TBWL since surgery. No complaints of nausea, emesis, abdominal pain or reflux. Reports infrequent but normal bowel movements every 2- 3 days. Trying to stick w shakes for now until the 6 week dennis. Has had some intermittent lightheadedness and has had some difficulty getting more water in. Present meal plan includes: 2 celebrate 4:1 shakes (2 scoops each), 8-10, 11-1pm 1 Premier protein shake (1 scoop) 2-4pm 1 ZP bar 5-8 pm Drinking 16 oz free water ? Exercise routine includes: bike, 3-4 x per week, 300-400 calories per session and walking 3-4 days per week, not tracking calories but walking for an hour [facility] Medical History (Updated 10/25/22 @ 12:28 by João White MD) DJD (degenerative joint disease) GERD (gastroesophageal reflux disease) Hypertension Morbid obesity Surgical History History of left knee surgery Family History Father HTN (hypertension) Diabetes Paternal Grandfather Skin cancer Paternal Grandmother Skin cancer Social History (Reviewed 10/31/22 @ 10:27 by KODY Bragg Household Members: None Housing: House Are you a primary healthcare applications analyst to a significant other at home: No Do you presently have visiting nurse or other home services: No Alcohol intake: current Alcohol intake frequency: holidays/special occasions only Alcohol type: hard liquor Patient Tobacco Use Status: Never used Tobacco Current occupational status: employed 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 Try to increase water to 32 oz. May switch to water with shakes if feels too thick Will let me know when she is ready to switch to add in food RTC 1 month, texting sooner if any problems encouraged to track calories while walking Telehealth Telehealth Location of provider rendering services: practice address Location of patient: address on file Patient Identification confirmed using: Name, : Yes Telehealth method: video Patient verbally consented to treatment: Yes Patient verbally consented to billing insurance company: Yes Patient informed of any privacy concerns related to visit: Yes Minutes spent on Phone/Video with Pt.: 13 Coding Level of Care Code Global (70373) Diagnoses S/P laparoscopic sleeve gastrectomy Z98.84
[2022-11-21 15:54] VITALS: BMI 39.6
== END 2022-11-21 16:31 | disposition home or self-care (01) ==
LOC: HO.HBS 16:30
PROVIDERS: PCP Family Medicine; Visit Provider Physician Assistant Surgical
DX: E66.09 Other obesity due to excess calories (principal); Z68.39 Body mass index [BMI] 39.0-39.9, adult; Z90.3 Acquired absence of stomach [part of]; Z98.84 Bariatric surgery status
CPT/HCPCS: 99024

== ENCOUNTER → 2022-11-21 16:30 | Outpatient (BNVA) | payer BC, SELFPAY | PROVIDERS: PCP Family Medicine; Visit Provider Physician Assistant Surgical ==

== ENCOUNTER 2022-12-26 15:30 | Outpatient (AMB) | payer BC, SELFPAY ==
--- NOTE | 2022-12-26 15:33 | A.OFFVIS_ITS ---
Intake VS Expanded 12/26/22 15:34 Height 5 ft 5 in Weight 225 lb BMI 37.4 Intake Visit Reasons: (tv) PO LSG 10/25/22 Canopy Inspector Required: No Allergies No Known Allergies Allergy (Verified 10/31/22 10:27) Medication List - Last Reconciled 12/26/22 by NEEMA Banegas pantoprazole 40 mg PO DAILY sennosides (senna) 17.2 mg (2 x 8.6 mg) PO BEDTIME PRN sucralfate 10 mL PO BID HPI HPI Comments History of Present Illness Details This?a?37?yo female who is s/p LSG without hiatal hernia repair on?10/25/22. Presents for 2 month post op visit. Weight today is 225 pounds, with a BMI of 37.4.? There has been a 62.4pound weight loss,(initial weight 287.4 pounds) since starting the program on 08/14/22 reflecting a 21.7% total body weight loss and a weight loss of 35.4 pounds since surgery (operative weight 260.4 pounds) reflecting a 13.5 % TBWL since surgery.? No complaints of nausea, emesis, abdominal pain or reflux. Reports infrequent but normal bowel movements every 2-3 days. She states she has joined a gym started doing weight lifting and is doing ok. No further lightheadedness. Reports her goal is 160 pounds and ability to return to playing soccer. Wants to change shakes to Pure protein shake and ZP bar prior to surgery. Present meal plan includes: 2 celebrate 4:1 shakes (2 scoops each), 8-10, 11-1pm american yogurt (20 gm) 2-4pm meal with 4 forks protein and 2-3 forks raw veg (without communicating on the veg Drinking 32-40 oz free water ? Exercise routine includes: bike, 6x per week, 200-300 calories per session then leg/arm weights. [facility] Medical History DJD (degenerative joint disease) GERD (gastroesophageal reflux disease) Hypertension Morbid obesity Surgical History History of left knee surgery Family History Father HTN (hypertension) Diabetes Paternal Grandfather Skin cancer Paternal Grandmother Skin cancer Social History Household Members: None Housing: House Are you a primary career services coordinator to a significant other at home: No Do you presently have visiting nurse or other home services: No Alcohol intake: current Alcohol intake frequency: holidays/special occasions only Alcohol type: hard liquor Patient Tobacco Use Status: Never used Tobacco Current occupational status: employed 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 Increase cardio to 350-400 nelda per session Weightlifting then cardio Telehealth Telehealth Location of provider rendering services: practice address Location of patient: address on file Patient Identification confirmed using: Name, : Yes Telehealth method: video Patient verbally consented to treatment: Yes Patient verbally consented to billing insurance company: Yes Patient informed of any privacy concerns related to visit: Yes Minutes spent on Phone/Video with Pt.: 25 Coding Level of Care Code Global (26471) Diagnoses S/P laparoscopic sleeve gastrectomy Z98.84
[2022-12-26 15:34] VITALS: BMI 37.4
== END 2022-12-26 16:01 | disposition home or self-care (01) ==
LOC: HO.HBS 15:54
PROVIDERS: PCP Family Medicine; Visit Provider Physician Assistant Surgical
DX: Z98.84 Bariatric surgery status (principal)
CPT/HCPCS: 99024

== ENCOUNTER → 2022-12-26 15:30 | Outpatient (BNVA) | payer BC, SELFPAY | PROVIDERS: PCP Family Medicine; Visit Provider Physician Assistant Surgical | DX: Z98.84 Bariatric surgery status (principal) ==

== ENCOUNTER 2023-02-19 14:56 | Outpatient (AMB) | payer BC, SELFPAY ==
--- NOTE | 2023-02-19 14:11 | A.OFFVIS_ITS ---
Intake VS Expanded 02/19/23 14:12 Height 5 ft 5 in Weight 208 lb 6.4 oz BMI 34.7 Body Fat % 43.8 Body Fat Mass 91.2 Body Water % 38.5 Basal Metabolic Rate/Score 1,529 Intake Visit Reasons: (TV) PO LSG 10/25/22 Briquette Operator Required: No Allergies No Known Allergies Allergy (Verified 10/31/22 10:27) Medication List - Last Reconciled 02/19/23 by NEEMA Banegas sennosides (senna) 17.2 mg (2 x 8.6 mg) PO BEDTIME PRN HPI HPI Comments History of Present Illness Details This?a?37?yo female who is s/p LSG without hiatal hernia repair on?10/25/22. Presents for 4 month post op visit. Weight today is 208.4 pounds, with a BMI of 34.7.? There has been a 79 pound weight loss,(initial weight 287.4 pounds) since starting the program on 08/14/22 reflecting a 21.7% total body weight loss and a weight loss of 52 pounds since surgery (operative weight 260.4 pounds) reflecting a 19.9 % TBWL since surgery.? No complaints of nausea, emesis, abdominal pain or reflux. Reports infrequent but normal bowel movements every 2-3 days. She states she is feeling well. Denies any significant problems but is having problems getting pills down, specifically the MVI and nelda +D. Celebrate. Has not been taking for the last several weeks due to nausea. Went back to using Celebrate 4 in 1 and has no more nause Present meal plan includes: celebrate 4 in 1 2 scoops, 7-9am, 11-1pm ZP bar 1-3 pm meal 6 forks protein and 6 forks cooked veg. 6 pm Drinking 20 oz free water ? Exercise routine includes: gym daily 2 miles bike, 7x per week, 75 calories, elliptical 200 calories, weights. PFSH Medical History DJD (degenerative joint disease) GERD (gastroesophageal reflux disease) Hypertension Morbid obesity Surgical History History of left knee surgery Family History Father HTN (hypertension) Diabetes Paternal Grandfather Skin cancer Paternal Grandmother Skin cancer Social History Household Members: None Housing: House Are you a primary career development specialist to a significant other at home: No Do you presently have visiting nurse or other home services: No Alcohol intake: current Alcohol intake frequency: holidays/special occasions only Alcohol type: hard liquor Patient Tobacco Use Status: Never used Tobacco Current occupational status: employed 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 6 pm Increase water intake to 48 oz daily increase bike to 100 nelda daily and continue elliptical 300 daily rtc video 1 month and in person 2 months (2) Constipation: Code(s): K59.00 - Constipation, unspecified Plan: senna 1 tab daily discussed the direct correlation of water intake to constipation and she will increase water intake. Telehealth Telehealth Location of provider rendering services: practice address Location of patient: other Patient Identification confirmed using: Name, : Yes Telehealth method: video Patient verbally consented to treatment: Yes Patient verbally consented to billing insurance company: Yes Patient informed of any privacy concerns related to visit: Yes Minutes spent on Phone/Video with Pt.: 20 Coding Level of Care Code Tele Est Pt Level 3 (32227) Diagnoses Obesity (BMI 30-39.9) E66.9 Constipation K59.00 Time Spent (min) 25
[2023-02-19 14:12] VITALS: BMI 34.7
== END 2023-02-19 14:57 | disposition home or self-care (01) ==
LOC: HO.HBS 14:56
PROVIDERS: PCP Family Medicine; Visit Provider Physician Assistant Surgical
DX: E66.9 Obesity, unspecified (principal); Z68.34 Body mass index [BMI] 34.0-34.9, adult; Z90.3 Acquired absence of stomach [part of]; Z98.84 Bariatric surgery status
CPT/HCPCS: 99213

== ENCOUNTER → 2023-02-19 14:56 | Outpatient (BNVA) | payer BC, SELFPAY | PROVIDERS: PCP Family Medicine; Visit Provider Physician Assistant Surgical ==

== ENCOUNTER 2023-04-16 09:44 | Outpatient (AMB) | payer BC, SELFPAY ==
--- NOTE | 2023-04-16 09:49 | A.OFFVIS_ITS ---
Intake VS Expanded 04/16/23 09:55 BP 136/63 Blood Pressure Location Lt popliteal Blood Pressure Position Sitting Pulse 58 Pulse Source Pulse Oximeter Temp 96.9 F Temperature Source Tympanic Pulse Oximetry 99 Oxygen Delivery Method Room Air Height 5 ft 5 in Weight 200 lb 12.8 oz BMI 33.4 Body Fat % 35.7 Body Fat Mass 71.6 Fat Free Mass 129.0 Visceral Fat Rating 8.0 Body Water % 45.9 Body Water Mass 92.2 Muscle Mass/Score 122.4 Basal Metabolic Rate/Score 1,763 Intake Visit Reasons: (ov) PO LSG 10/25/22 Waste Picker Required: No Allergies No Known Allergies Allergy (Verified 04/16/23 09:58) Medication List - Last Reconciled 04/16/23 by NEEMA Banegas sennosides (senna) 17.2 mg (2 x 8.6 mg) PO BEDTIME PRN HPI HPI Comments History of Present Illness Details This?a?37?yo female who is s/p LSG without hiatal hernia repair on?10/25/22. Presents for 6 month post op visit. Weight today is 200.8 pounds, with a BMI of 33.4.? There has been a 86.6 pound weight loss,(initial weight 287.4 pounds) since starting the program on 08/14/22 reflecting a 30.1% total body weight loss and a weight loss of 59.6 pounds since surgery (operative weight 260.4 pounds) reflecting a 22.8 % TBWL since surgery.? No complaints of nausea, emesis, abdominal pain or reflux. Reports infrequent but normal bowel movements every 2-3 days. She states she is feeling well. She denies any problems. She states she would like to get away from the in and try celebrate rebuild Present meal plan includes: celebrate in 2 scoops, 7-9am, 11-1pm 1/2 cup fresh berries if needed or swedish yogurt (1 of 7 days) meal 7 forks protein and 7 forks veg/salad. 6 pm Drinking 32 oz free water ? Exercise routine includes: gym daily 4-5 days per week, bike/elliptical, 200 nelda on elliptical, 100 on bike, then weights. Any post op complications: none ROBYN: never DM: never HTN: resolved Hyperlipidemia: never GERD:?0-5 scale ??0 = no symptoms ??1 = symptoms noticeable but not bothersome 2 =symptoms bothersome but not daily ? 3 = symptoms bothersome and daily 4 = symptoms affect daily activities 5 = symptoms are incapacitating, unable to do daily activities ? How bad is the heartburn: 0 ? Heartburn while lying down: 0 ? Heartburn when standing up: 0 ? Heartburn after meals: 0 ? Does heartburn change your diet: 0 ? Does heartburn wake you up from sleep: 0 ? Do you have difficulty swallowin ? Do you have pain with swallowin ? If you take medicine for your reflux, does this affect your daily life: 0 Satisfaction with present condition - satisfied or not satisfied: satisfied [facility] Medical History DJD (degenerative joint disease) GERD (gastroesophageal reflux disease) Hypertension Morbid obesity Surgical History History of left knee surgery Family History Father HTN (hypertension) Diabetes Paternal Grandfather Skin cancer Paternal Grandmother Skin cancer Social History Household Members: None Housing: House Are you a primary md do resident urgent care to a significant other at home: No Do you presently have visiting nurse or other home services: No Alcohol intake: current Alcohol intake frequency: holidays/special occasions only Alcohol type: hard liquor Patient Tobacco Use Status: Never used Tobacco Current occupational status: employed 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 Review of Systems Const All systems reviewed & are unremarkable except as noted in HPI and below Physical Exam Const General: cooperative and no acute distress Orientation/consciousness: patient oriented x3 Resp Effort & Inspection: normal respiratory effort Auscultation: clear to auscultation bilaterally Cardio Rate: regular rate Rhythm: regular rhythm GI Inspection: Yes normal to inspection and Yes incision (well healed) Palpation (GI): Soft to palpation and no masses Neuro General: patient oriented x3 Assessment & Plan Assessment & Plan (1) Obesity (BMI 30-39.9): Code(s): E66.9 - Obesity, unspecified Plan: Check six-month labs. New meal plan: Celebrate rebuild 2 scoops in 8 oz of unsweetened almond milk Meal x2, 7 forks of protein and 7 forks of salad or vegetables. Encouraged to increase water to 48-64 oz per day. Encouraged increased exercise to a goal of 2000 calories per week. Return to clinic 3 weeks. Orders: Orders Lipid Panel Today E51.9 - Thiamine deficiency, unspecified, E55.9 - Vitamin D deficiency, unspecified, E66.9 - Obesity, unspecified, I10 - Essential (primary) hypertension Zinc Today E51.9 - Thiamine deficiency, unspecified, E55.9 - Vitamin D deficiency, unspecified, E66.9 - Obesity, unspecified, I10 - Essential (primary) hypertension Vitamin A Today E51.9 - Thiamine deficiency, unspecified, E55.9 - Vitamin D deficiency, unspecified, E66.9 - Obesity, unspecified, I10 - Essential (primary) hypertension Basic Metabolic Panel Today E51.9 - Thiamine deficiency, unspecified, E55.9 - Vitamin D deficiency, unspecified, E66.9 - Obesity, unspecified, I10 - Essential (primary) hypertension Insulin Today E51.9 - Thiamine deficiency, unspecified, E55.9 - Vitamin D deficiency, unspecified, E66.9 - Obesity, unspecified, I10 - Essential (primary) hypertension Hemoglobin A1c Today E51.9 - Thiamine deficiency, unspecified, E55.9 - Vitamin D deficiency, unspecified, E66.9 - Obesity, unspecified, I10 - Essential (primary) hypertension Complete Blood Count Auto Diff Today E51.9 - Thiamine deficiency, unspecified, E55.9 - Vitamin D deficiency, unspecified, E66.9 - Obesity, unspecified, I10 - Essential (primary) hypertension IRON PROFILE Today E51.9 - Thiamine deficiency, unspecified, E55.9 - Vitamin D deficiency, unspecified, E66.9 - Obesity, unspecified, I10 - Essential (primary) hypertension Vitamin B12 and Folate Today E51.9 - Thiamine deficiency, unspecified, E55.9 - Vitamin D deficiency, unspecified, E66.9 - Obesity, unspecified, I10 - Essential (primary) hypertension C Reactive Protein Today E51.9 - Thiamine deficiency, unspecified, E55.9 - Vitamin D deficiency, unspecified, E66.9 - Obesity, unspecified, I10 - Essential (primary) hypertension Vitamin B1 Today E51.9 - Thiamine deficiency, unspecified, E55.9 - Vitamin D deficiency, unspecified, E66.9 - Obesity, unspecified, I10 - Essential (primary) hypertension TSH reflex Free T4 Today E51.9 - Thiamine deficiency, unspecified, E55.9 - Vitamin D deficiency, unspecified, E66.9 - Obesity, unspecified, I10 - Essential (primary) hypertension Ferritin Today E51.9 - Thiamine deficiency, unspecified, E55.9 - Vitamin D deficiency, unspecified, E66.9 - Obesity, unspecified, I10 - Essential (primary) hypertension Vitamin D 25-OH Total Today E51.9 - Thiamine deficiency, unspecified, E55.9 - Vitamin D deficiency, unspecified, E66.9 - Obesity, unspecified, I10 - Essential (primary) hypertension Medications: Refilled sennosides (senna) 17.2 mg (2 x 8.6 mg) PO BEDTIME PRN 90 tabs 2RF constipation Coding Level of Care Code Est Pt Level 4 (21792) Diagnoses Obesity (BMI 30-39.9) E66.9
[2023-04-16 09:55] VITALS: BP 136/63; PULSE 58; TEMP 36.1; O2SAT 99; BMI 33.4
== END 2023-04-16 10:29 | disposition home or self-care (01) ==
PROVIDERS: PCP Family Medicine; Visit Provider Physician Assistant Surgical
DX: E66.9 Obesity, unspecified (principal); Z68.33 Body mass index [BMI] 33.0-33.9, adult; Z90.3 Acquired absence of stomach [part of]; Z98.84 Bariatric surgery status
CPT/HCPCS: 99214

== ENCOUNTER → 2023-04-16 09:44 | Outpatient (BNVA) | payer BC, SELFPAY | PROVIDERS: PCP Family Medicine; Visit Provider Physician Assistant Surgical ==

== ENCOUNTER 2023-05-03 08:59 | Outpatient (REF) | payer BC, SELFPAY ==
[2023-05-03 09:12] LABS: MANUAL DIFF FLAG NO
[2023-05-03 09:36] LABS: Basophils Absolute Auto 0.1 X10*3/uL (0.0-0.2); Basophils Percent Auto 0.9 % (0-2); Eosinophils Absolute Auto 0.2 X10*3/uL (0.0-0.4); Eosinophils Percent Auto 3.1 % (0-4); Hematocrit 36.9 % (37.0-47.0); Imm Gran Abs Auto 0.01 X10*3/uL (0.00-0.03); Imm Gran Pct Auto 0.2 % (0.0-0.4); Lymphocytes Absolute Auto 2.8 X10*3/uL (1.2-4.9); Lymphocytes Percent Auto 51.9 % (20-40); Mean Corpuscular HGB Conc 32.5 g/dl (31.0-35.0); Mean Corpuscular Hemoglobin 29.8 pg (27.0-33.0); Mean Corpuscular Volume 91.6 fL (80.0-98.0); Mean Platelet Volume 10.5 fL (9.4-12.3); Monocytes Absolute Auto 0.3 X10*3/uL (0.1-1.2); Monocytes Percent Auto 4.6 % (2-11); Neutrophils Absolute Auto 2.1 x10*3/uL (2.0-8.3); Neutrophils Percent Auto 39.3 % (45-73); Platelet Count 295 X10*3/uL (160-400); Red Blood Count 4.03 X10*6/uL (4.20-5.50); Red Cell Distribution Width 13.3 % (11.0-16.0); White Blood Count 5.4 X10*3/uL (4.8-10.8)
[2023-05-03 09:42] LABS: Estimated Average Glucose 94 mg/dL; Hemoglobin A1c % 4.9 % (<6.0)
[2023-05-03 10:31] LABS: Folate 11.3 ng/mL (> or = 4.0)
[2023-05-03 11:12] LABS: TSH reflex Free T4 2.06 uIU/mL (0.32-4.0); Vitamin D 25-OH Total 43.2 ng/mL (>30)
[2023-05-03 11:19] LABS: Anion Gap 11 (12-20); Blood Urea Nitrogen 13 mg/dL (9-16); C Reactive Protein 0.19 mg/dL (< or = 0.50); Calcium 8.9 mg/dL (8.4-10.2); Carbon Dioxide 25 mmol/L (22-29); Chloride 109 mmol/L (96-108); Cholesterol 190 mg/dL (<200); Estimated Glomerular Filt Rate > 60; Glucose Random 93 mg/dL (60-115); HDL Cholesterol 41 mg/dL (>40); Iron 102 mcg/dL (30-160); LDL Cholesterol Calculated 120 mg/dL (<100); Percent Iron Saturation 33 % (15-50); Sodium 141 mmol/L (135-145); Total Iron Binding Capacity 308 mcg/dL (228-428); Triglycerides 147 mg/dL (<150); Unsaturated Iron Binding 206 ug/dL
[2023-05-03 11:45] LABS: Ferritin 90 ng/mL (10-250); Insulin 4 uU/mL (2-29)
[2023-05-03 14:54] LABS: Vitamin B12 512 pg/mL (200-900)
[2023-05-07 00:19] LABS: Vitamin B1 6 nmol/L (8-30)
[2023-05-07 16:28] LABS: Vitamin A 85 mcg/dL (38-98)
[2023-05-09 12:39] LABS: Zinc 65 mcg/dL (60-130)
== END 2023-05-03 09:00 | disposition home or self-care (01) ==
LOC: HO.LAB 08:59
PROVIDERS: PCP Family Medicine; Visit Provider Physician Assistant Surgical
DX: E66.9 Obesity, unspecified (principal); E55.9 Vitamin D deficiency, unspecified; E51.9 Thiamine deficiency, unspecified; I10 Essential (primary) hypertension
CPT/HCPCS: 36415; 80048; 80061; 82306; 82607; 82728; 82746; 83036; 83525; 83540; 84425; 84443; 84590; 84630; 85025; 86140